=== PATIENT | male | born 1965 | race Caucasian/White ===

== ENCOUNTER 2020-08-03 11:38 | Observation (INO) ==
[2020-08-03] MEDS ORDERED: *HR* LORazepam 2 MG/ML VIAL IVP ONE (11:44)
[2020-08-03] MEDS ORDERED: 0.9 % Sodium Chloride 500 ML IVC ONE (11:44)
[2020-08-03] MEDS: 0.9 % Sodium Chloride 1,000 ML IVC SCH ×2 (11:56→21:31)
[2020-08-03 12:22] LABS: Basophils % 0.4 %; Hematocrit 49.4 % (37.5-50.1); Hemoglobin 17.2 g/dL (12.9-16.9); Immature Granulocytes % 0.4 % (0-4); Lymphocytes # 0.9 K/mcL (0.6-4.6); Lymphocytes % 16.8 %; Mean Corpuscular HGB Conc 34.8 g/dL (31.6-35.5); Mean Corpuscular Hemoglobin 31.4 pg (28.0-33.3); Mean Corpuscular Volume 90.3 fL (83.0-100.0); Mean Platelet Volume 11.2 fL (9.4-12.4); Monocytes # 0.5 K/mcL (0.0-1.3); Monocytes % 9.2 %; Neutrophils # 3.8 K/mcL (1.6-8.9); Platelet Count 122 K/mcL (140-400); Red Blood Count 5.47 M/mcL (4.19-5.50); Red Cell Distribution Width 11.8 % (11.5-14.5); Segmented Neutrophils % 73.2 %; White Blood Count 5.1 K/mcL (4.3-11.1)
[2020-08-03 12:40] LABS: Albumin 3.8 g/dL (3.5-5.7); Albumin/Globulin Ratio 1.3 (1.1-2.2); Bilirubin,Direct 0.2 mg/dL (0.0-0.2); Bilirubin,Indirect 0.4 mg/dL (0.0-1.0); Bilirubin,Total 0.6 mg/dL (0.3-1.0); Calcium 8.3 mg/dL (8.6-10.3); Potassium 4.1 mEq/L (3.5-5.1); Total Protein 6.8 g/dL (6.4-8.9)
[2020-08-03 12:50] LABS: Platelet Estimate Normal (Normal)
[2020-08-03] MEDS ORDERED: Acetaminophen 325 MG TABLET PO PRN (13:06)
[2020-08-03] MEDS ORDERED: Ondansetron 4 MG/2 ML VIAL IVP PRN (13:06)
[2020-08-03] MEDS ORDERED: Naloxone 0.4 MG/ML INJ IVP PRN (13:06)
[2020-08-03] MEDS ORDERED: SUMAtriptan succinate 50 MG TABLET PO PRN (13:08)
[2020-08-03] MEDS ORDERED: *HR* LORazepam 2 MG/ML VIAL IVP PRN (13:09)
[2020-08-03 14:23] LABS: Magnesium 1.8 mg/dL (1.6-2.6); Phosphorous 3.5 mg/dL (2.7-4.5)
[2020-08-03] MEDS ORDERED: levoFLOXacin 750 MG/150 ML 750 MG/150 ML BAG IVPB SCH (17:00)
[2020-08-03] MEDS: Dexamethasone Sodium Phos/PF 10 MG/ML VIAL IVP SCH (21:30)
[2020-08-03] MEDS: lisinopriL 20 MG TABLET PO SCH (21:32)
[2020-08-04 07:08] VITALS: BP 116/71
[2020-08-04 07:35] LABS: Hemoglobin 16.1 g/dL (12.9-16.9); Mean Corpuscular Hemoglobin 31.1 pg (28.0-33.3); Mean Platelet Volume 11.1 fL (9.4-12.4); Platelet Count 106 K/mcL (140-400); Red Blood Count 5.17 M/mcL (4.19-5.50); Red Cell Distribution Width 11.9 % (11.5-14.5)
[2020-08-04 08:02] LABS: BUN/Creatinine Ratio 19 (6-26); Blood Urea Nitrogen 27 mg/dL (6-20); Carbon Dioxide 16 mEq/L (23-29); Chloride 102 mEq/L (98-107); Cholesterol 69 mg/dL (< 200); Glucose 291 mg/dL (70-105); HDL Cholesterol 23 mg/dL (40-59); LDL Cholesterol,Calculated 29 mg/dL (< 100); Osmolality,Calculated 290 (280-300); Potassium 4.2 mEq/L (3.5-5.1); Sodium 132 mEq/L (136-145); Triglycerides 85 mg/dL (< 150); eGFR For African Americans > 60 (> 60); eGFR For Non-African Americans 53 (> 60)
[2020-08-04] MEDS: lisinopriL 20 MG TABLET PO SCH (08:44)
[2020-08-04] MEDS: Dexamethasone Sodium Phos/PF 10 MG/ML VIAL IVP SCH (08:44)
[2020-08-04] MEDS ORDERED: amLODIPine 5 MG TABLET PO SCH (09:00)
[2020-08-04] MEDS ORDERED: Metoprolol XL (24 HR) Succ 25 MG TAB.ER.24H PO SCH (09:00)
[2020-08-04 09:10] LABS: C-Reactive Protein 34 mg/L (Less than 10)
[2020-08-04 09:28] LABS: Ferritin 721 ng/mL (20-250)
== END 2020-08-04 11:44 | disposition home or self-care (01) ==
LOC: INPPIK 11:38 → EMEROOPIK 11:38 → INPPIK 20:32
PROVIDERS: ADMIT Family Medicine; ATTEND Family Medicine

== ENCOUNTER 2020-08-07 18:38 | Inpatient (IN) ==
[2020-08-07] MEDS ORDERED: 0.9 % Sodium Chloride 1,000 ML IVC ONE ×2 (19:01→20:11)
[2020-08-07] MEDS ORDERED: Isovue-370 500 ML BOTTLE IVP ONE (19:01)
[2020-08-07 19:29] LABS: Basophils % 0.3 %; Hematocrit 44.9 % (37.5-50.1); Hemoglobin 15.8 g/dL (12.9-16.9); Immature Granulocytes % 1.8 % (0-4); Lymphocytes # 0.6 K/mcL (0.6-4.6); Lymphocytes % 6.9 %; Mean Corpuscular HGB Conc 35.2 g/dL (31.6-35.5); Mean Platelet Volume 11.9 fL (9.4-12.4); Monocytes # 0.5 K/mcL (0.0-1.3); Monocytes % 6.3 %; Neutrophils # 6.8 K/mcL (1.6-8.9); Platelet Count 150 K/mcL (140-400); Red Cell Distribution Width 11.8 % (11.5-14.5); Segmented Neutrophils % 84.7 %
[2020-08-07 19:31] LABS: ABG Base Excess -2 mEq/L (-2 to 3); ABG HCO3 21 mEq/L (21-27); ABG Oxygen Saturation 89 % (95-98); ABG PCO2 31 mmHg (35-45); ABG PH 7.44 pH Units (7.32-7.45); ABG PO2 54 mmHg (85-104); ABG TCO2 22 mEq/L (20-26)
[2020-08-07 19:43] LABS: INR 1.1; Prothrombin Time 12.5 Seconds (9.4-12.1)
[2020-08-07 19:49] LABS: Troponin I < 0.03 ng/mL (< 0.04)
[2020-08-07 19:58] LABS: Alanine Aminotransferase 33 Units/L (7-52); Albumin 3.3 g/dL (3.5-5.7); Albumin/Globulin Ratio 1.3 (1.1-2.2); Alkaline Phosphatase 67 Units/L (34-104); Aspartate Amino Transferase 28 Units/L (13-39); BUN/Creatinine Ratio 16 (6-26); Bilirubin,Direct 0.2 mg/dL (0.0-0.2); Bilirubin,Indirect 0.6 mg/dL (0.0-1.0); Bilirubin,Total 0.8 mg/dL (0.3-1.0); Blood Urea Nitrogen 23 mg/dL (6-20); Calcium 8.7 mg/dL (8.6-10.3); Carbon Dioxide 22 mEq/L (23-29); Chloride 98 mEq/L (98-107); Globulin 2.5 g/dL (2.4-3.5); Glucose 567 mg/dL (70-105); Osmolality,Calculated 306 (280-300); Potassium 4.4 mEq/L (3.5-5.1); Sodium 133 mEq/L (136-145); Total Protein 5.8 g/dL (6.4-8.9); eGFR For African Americans > 60 (> 60); eGFR For Non-African Americans 52 (> 60)
[2020-08-07] MEDS ORDERED: Insulin Regular, Human 100 UNIT/ML SUBQ ONE (22:04)
[2020-08-07] MEDS ORDERED: Naloxone 0.4 MG/ML INJ IVP PRN (22:49)
[2020-08-07] MEDS ORDERED: Dextrose Gel 15 GM/37.5 ML TUBE PO PRN ×2 (22:49)
[2020-08-07] MEDS ORDERED: D5% in Water 1,000 ML IVC PRN (22:49)
[2020-08-07] MEDS ORDERED: *HR* Dextrose 50 % in Water (Vial) 50 ML VIAL IVP PRN (22:49)
[2020-08-07] MEDS: 0.9 % Sodium Chloride 1,000 ML IVC SCH (23:00)
[2020-08-08] MEDS: 0.9 % Sodium Chloride 1,000 ML IVC SCH (05:43)
[2020-08-08] MEDS: Budesonide/Formoterol 160/4.5 1 PUFF INH IH SCH ×2 (10:05→22:20)
[2020-08-08] MEDS: Insulin LISPRO 300 UNITS/3 ML VIAL SUBQ SCH ×3 (10:24→17:56)
[2020-08-08] MEDS: Aspirin Enteric Coated 81 MG Tablet PO SCH (10:50)
[2020-08-08] MEDS: Metoprolol XL (24 HR) Succ 25 MG TAB.ER.24H PO SCH (10:50)
[2020-08-08] MEDS: lisinopriL 20 MG TABLET PO SCH ×2 (10:50→20:42)
[2020-08-08] MEDS: Dexamethasone 4 MG/ML VIAL IVP SCH (10:50)
[2020-08-08] MEDS: amLODIPine 5 MG TABLET PO SCH (10:50)
[2020-08-08] MEDS ORDERED: Insulin LISPRO 300 UNITS/3 ML VIAL SUBQ SCH (21:00)
[2020-08-09 07:22] VITALS: BP 141/85
[2020-08-09] MEDS: Aspirin Enteric Coated 81 MG Tablet PO SCH (08:12)
[2020-08-09] MEDS: amLODIPine 5 MG TABLET PO SCH (08:12)
[2020-08-09] MEDS: lisinopriL 20 MG TABLET PO SCH (08:12)
[2020-08-09] MEDS: Insulin LISPRO 300 UNITS/3 ML VIAL SUBQ SCH (08:13)
[2020-08-09] MEDS: Dexamethasone 4 MG/ML VIAL IVP SCH (08:13)
[2020-08-09] MEDS ORDERED: *HR* Heparin 5,000 UNIT/ML VIAL SQ SCH (08:30)
[2020-08-09] MEDS: Metoprolol XL (24 HR) Succ 25 MG TAB.ER.24H PO SCH (08:46)
[2020-08-09] MEDS ORDERED: Insulin DETEMIR 100 UNIT/ML X5UNITS SUBQ SCH (09:00)
[2020-08-09] MEDS ORDERED: Cholecalciferol (D-3) 1,000 UNIT (25MCG) TABLET PO SCH (09:30)
[2020-08-09] MEDS ORDERED: Ascorbic Acid 500 MG TABLET PO SCH (09:30)
[2020-08-09] MEDS ORDERED: Furosemide 20 MG/2 ML VIAL IVP ONE (09:45)
[2020-08-09] MEDS ORDERED: Dexamethasone Sodium Phos/PF 10 MG/ML VIAL IVP ONE (09:45)
[2020-08-09] MEDS: Budesonide/Formoterol 160/4.5 1 PUFF INH IH SCH (09:58)
[2020-08-09] MEDS ORDERED: Piperacillin/Tazobactam 3.375 GM in 0.9 % Sodium Chloride Mini Bag 100 ML IVPB SCH (10:00)
[2020-08-09 10:31] LABS: Hematocrit 46.9 % (37.5-50.1); Hemoglobin 16.6 g/dL (12.9-16.9); Mean Corpuscular HGB Conc 35.4 g/dL (31.6-35.5); Mean Corpuscular Hemoglobin 31.4 pg (28.0-33.3); Mean Corpuscular Volume 88.7 fL (83.0-100.0); Mean Platelet Volume 11.2 fL (9.4-12.4); Platelet Count 171 K/mcL (140-400); Red Blood Count 5.29 M/mcL (4.19-5.50); Red Cell Distribution Width 11.8 % (11.5-14.5); White Blood Count 9.5 K/mcL (4.3-11.1)
[2020-08-09 10:46] LABS: BUN/Creatinine Ratio 13 (6-26); Blood Urea Nitrogen 15 mg/dL (6-20); Calcium 8.7 mg/dL (8.6-10.3); Carbon Dioxide 29 mEq/L (23-29); Chloride 99 mEq/L (98-107); Glucose 308 mg/dL (70-105); Osmolality,Calculated 294 (280-300); Potassium 4.1 mEq/L (3.5-5.1); Sodium 136 mEq/L (136-145); eGFR For African Americans > 60 (> 60); eGFR For Non-African Americans > 60 (> 60)
== END 2020-08-09 11:47 | disposition short-term general hospital (02) | DRG 177 ==
LOC: INPPIK 18:38 → EMEROOPIK 18:38 → INPPIK 22:41
PROVIDERS: ADMIT Family Medicine; ATTEND Family Medicine